=== PATIENT | female | born 1960 | race African-American/Black ===

== ENCOUNTER 2018-05-14 05:40 | Inpatient (IN) | payer BC ==
[~2018-05-14] VITALS: Ht 165.1 cm; Wt 71.0 kg
[2018-05-14] MEDS ORDERED: LABETALOL HCL 5 MG/ML ML 20ML VIAL IV ONE ×2 (05:56→06:15)
[2018-05-14 06:33] LABS: Basophils # (auto) 0 uL; Basophils % (auto) 0.5 % (0.0-2.0); Eosinophils # (auto) 0.1 uL; Eosinophils % (auto) 1.3 % (0.0-7.0); Lymphocytes # (auto) 1.5 uL; Mean Corpuscular Hemoglobin 34.7 pg (28.0-32.0); Monocytes # (auto) 0.5 uL; Neutrophils # (auto) 3.7 uL
[2018-05-14 06:35] LABS: Hematocrit 44.5 % (36.0-46.0); Hemoglobin 15.1 g/dL (12.2-16.2); Lymphocytes % (auto) 26.3 % (10.0-50.0); Mean Corpuscular Volume 102.1 fL (80.0-100.0); Monocytes % (auto) 8.4 % (0.0-12.0); Neutrophils % (auto) 63.5 % (37.0-80.0); Platelet Count (auto) 224 10^3/uL (140-450); Red Blood Cells 4.36 10^6/uL (4.0-5.20); Red Cell Distribution Width 13.1 % (11.8-14.3); White Blood Cell 5.8 10^3/uL (4.4-10.8)
[2018-05-14 06:50] LABS: Albumin 3.7 g/dL (3.4-5.0); Anion Gap 9 (5-15); BUN/Creatinine Ratio 16.9; Blood Alcohol < 3.0 mg/dL (0-5); Blood Urea Nitrogen 10 mg/dL (7-18); Calcium 8.5 mg/dL (8.5-10.1); Carbon Dioxide 26 mmol/L (21-32); Chloride 110 mmol/L (98-107); GFR African American 135 mL/min; GFR Non-African American 111 mL/min; Glucose 89 mg/dL (74-106); Magnesium 2.1 mg/dL (1.6-2.6); Potassium 3.2 mmol/L (3.5-5.1); Sodium 145 mmol/L (136-145)
[2018-05-14 06:52] LABS: INR 0.93 (0.9-1.15)
[2018-05-14 06:56] LABS: Alanine Aminotransferase 17 U/L (13-56); Alkaline Phosphatase 67 U/L (45-117); Aspartate Aminotransferase 14 U/L (15-37); Bilirubin, Total 1.1 mg/dL (0.2-1.0); Total Protein 7.4 g/dL (6.4-8.2)
[2018-05-14] MEDS ORDERED: LORazepam 2MG/ML-1ML VIAL IV PRN (08:45)
[2018-05-14] MEDS ORDERED: DOCUSATE SOD 100 MG CAP PO PRN (09:15)
[2018-05-14] MEDS ORDERED: ACETAMINOPHEN 325 MG TAB PO PRN (09:15)
[2018-05-14] MEDS ORDERED: cloNIDine HCL 0.1 MG TAB PO PRN (09:15)
[2018-05-14] MEDS ORDERED: HYDROcodone-ACET 5/325MG TAB PO PRN (09:15)
[2018-05-14 09:29] LABS: Folate (Folic Acid) 19.87 ng/mL (5.38-24)
[2018-05-14] MEDS: MULTIPLE VITAMIN TAB PO SCH (10:42)
[2018-05-14] MEDS: FAMOTIDINE 20 MG TAB PO SCH ×2 (10:43→21:32)
[2018-05-14] MEDS: ENOXAPARIN SOD 40 MG/0.4 ML SYRINGE SC SCH (10:44)
[2018-05-14] MEDS: LISINOPRIL 10 MG TAB PO SCH (10:44)
[2018-05-14 13:45] LABS: Urine Bacteria NONE SEEN /hpf (None Seen); Urine Blood Negative /uL (Negative); Urine Specific Gravity 1.011 (1.001-1.035); Urine WBC 3 /hpf (0 - 5)
[2018-05-14] MEDS ORDERED: GADOPENTETATE DIMEGLUMINE (10MMOL/20 ML) VIAL IV ONE (13:50)
[2018-05-14] MEDS: SODIUM CHLOR 0.9% PF (SALINE LOCK) 10ML VIAL/SYR IV SCH ×2 (14:23→21:32)
[2018-05-14 18:05] VITALS: BP 166/105
[2018-05-14] MEDS: ONDANSETRON HCL 4 MG/2 ML VIAL IV PRN (18:22)
[2018-05-14] MEDS ORDERED: ENALAPRILAT 1.25 MG/ML-1ML VIAL IV PRN (18:30)
[2018-05-14 22:00] VITALS: BP 105/69
[2018-05-14] MEDS ORDERED: POTASSIUM CHL 20 Meq TABLET PO ONE (22:00)
[2018-05-15] MEDS: ONDANSETRON HCL 4 MG/2 ML VIAL IV PRN ×3 (00:11→19:35)
[2018-05-15] MEDS ORDERED: TEMAZEPAM 15 MG CAP PO ONE ×2 (01:30→20:45)
[2018-05-15 05:00] VITALS: BP 123/89
[2018-05-15] MEDS: SODIUM CHLOR 0.9% PF (SALINE LOCK) 10ML VIAL/SYR IV SCH ×3 (05:40→21:35)
[2018-05-15 06:30] LABS: Basophils # (auto) 0 uL; Eosinophils # (auto) 0.1 uL; Monocytes # (auto) 0.4 uL; White Blood Cell 4.8 10^3/uL (4.4-10.8)
[2018-05-15 06:32] LABS: Basophils % (auto) 0.6 % (0.0-2.0); Eosinophils % (auto) 1.4 % (0.0-7.0); Hematocrit 42.5 % (36.0-46.0); Hemoglobin 14.6 g/dL (12.2-16.2); Lymphocytes # (auto) 1.7 uL; Lymphocytes % (auto) 34.4 % (10.0-50.0); Mean Corpuscular Hemoglobin 34.9 pg (28.0-32.0); Mean Corpuscular Hgb Conc. 34.3 g/dL (32.0-36.0); Mean Corpuscular Volume 101.6 fL (80.0-100.0); Monocytes % (auto) 8.3 % (0.0-12.0); Neutrophils # (auto) 2.7 uL; Neutrophils % (auto) 55.3 % (37.0-80.0); Nucleated Red Blood Cells % 0.1 %; Platelet Count (auto) 212 10^3/uL (140-450); Red Blood Cells 4.19 10^6/uL (4.0-5.20); Red Cell Distribution Width 13.4 % (11.8-14.3)
[2018-05-15 06:46] LABS: Albumin 3.6 g/dL (3.4-5.0); BUN/Creatinine Ratio 14.1; Calcium 8.7 mg/dL (8.5-10.1); Potassium 3.9 mmol/L (3.5-5.1); Total Protein 7.1 g/dL (6.4-8.2)
[2018-05-15 08:42] VITALS: BP 122/77
[2018-05-15] MEDS: MULTIPLE VITAMIN TAB PO SCH (11:06)
[2018-05-15] MEDS: FAMOTIDINE 20 MG TAB PO SCH ×2 (11:07→21:35)
[2018-05-15] MEDS: LISINOPRIL 10 MG TAB PO SCH (11:07)
[2018-05-15] MEDS: ENOXAPARIN SOD 40 MG/0.4 ML SYRINGE SC SCH (11:08)
[2018-05-15 11:45] VITALS: BP 128/90
[2018-05-15 16:32] VITALS: BP 135/82
[2018-05-15 18:11] LABS: % Iron Saturation 15.5 % (15-50)
[2018-05-15] MEDS ORDERED: ALPR0.25 PO (19:16)
[2018-05-15] MEDS ORDERED: NAPR220C PO (19:17)
[2018-05-15 20:08] LABS: Protein, CSF 81.5 mg/dL (15-45)
[2018-05-15 21:33] LABS: CSF White Blood Cells 0 CUMM (0-5)
[2018-05-15 22:00] VITALS: BP 125/88
[2018-05-16 05:00] VITALS: BP 137/86
[2018-05-16] MEDS: SODIUM CHLOR 0.9% PF (SALINE LOCK) 10ML VIAL/SYR IV SCH ×3 (06:01→21:22)
[2018-05-16 09:00] VITALS: BP 142/98
[2018-05-16] MEDS ORDERED: LORazepam 2MG/ML-1ML VIAL IV PRN (09:15)
[2018-05-16] MEDS: FAMOTIDINE 20 MG TAB PO SCH ×2 (09:57→21:21)
[2018-05-16] MEDS: LISINOPRIL 10 MG TAB PO SCH (09:58)
[2018-05-16] MEDS: MULTIPLE VITAMIN TAB PO SCH (09:58)
[2018-05-16] MEDS: ENOXAPARIN SOD 40 MG/0.4 ML SYRINGE SC SCH (09:59)
[2018-05-16 13:00] VITALS: BP 151/87
[2018-05-16 17:00] VITALS: BP 139/93
[2018-05-16 22:00] VITALS: BP 150/94
[2018-05-16] MEDS ORDERED: TEMAZEPAM 15 MG CAP PO ONE (22:45)
[2018-05-17 04:05] LABS: Serum Albumin 4.3 g/dL (3.5-5.5)
[2018-05-17 05:00] VITALS: BP 138/97
[2018-05-17] MEDS: SODIUM CHLOR 0.9% PF (SALINE LOCK) 10ML VIAL/SYR IV SCH ×2 (06:24→14:21)
[2018-05-17 08:00] VITALS: BP 134/93
[2018-05-17 08:10] LABS: Immunoglobulin G, Serum 905 mg/dL (700-1600)
[2018-05-17] MEDS: FERROUS SULFATE 325 MG TAB PO SCH ×2 (08:28→18:00)
[2018-05-17] MEDS: FAMOTIDINE 20 MG TAB PO SCH (10:26)
[2018-05-17] MEDS: MULTIPLE VITAMIN TAB PO SCH (10:27)
[2018-05-17] MEDS: LISINOPRIL 10 MG TAB PO SCH (10:27)
[2018-05-17] MEDS: ENOXAPARIN SOD 40 MG/0.4 ML SYRINGE SC SCH (10:27)
[2018-05-17 11:41] VITALS: BP 134/93
[2018-05-17 12:51] VITALS: BP 132/94
[2018-05-17 16:58] VITALS: BP 137/85
[2018-05-21 15:09] LABS: Albumin, CSF 49 mg/dL (11-48); CSF IgG Index 0.7 (0.0-0.7); CSF/Serum Alb. Index 11 (0-8); IgG/Alb Ratio, CSF 0.14 (0.00-0.25)
== END 2018-05-17 19:25 | disposition home or self-care (01) | DRG 64 ==
LOC: ER 05:44 → OVERFLOW 05:45 → WEST WING 17:16 → TELE-WESTW 18:46
PROVIDERS: ADMIT Internal Medicine; ATTEND Family Medicine
PROC: 009U3ZX Drainage of Spinal Canal, Percutaneous Approach, Diagnostic (ICD-10-PCS; principal; 2018-05-15)
DX: I63.9 Cerebral infarction, unspecified (principal); G93.40 Encephalopathy, unspecified; G37.9 Demyelinating disease of central nervous system, unspecified; G81.91 Hemiplegia, unspecified affecting right dominant side; G60.0 Hereditary motor and sensory neuropathy; E87.5 Hyperkalemia; E87.6 Hypokalemia; F40.240 Claustrophobia; I10 Essential (primary) hypertension; D75.89 Other specified diseases of blood and blood-forming organs; R26.9 Unspecified abnormalities of gait and mobility; I25.10 Atherosclerotic heart disease of native coronary artery without angina pectoris; M48.02 Spinal stenosis, cervical region; M77.9 Enthesopathy, unspecified; Z82.0 Family history of epilepsy and other diseases of the nervous system; Z88.5 Allergy status to narcotic agent; Z80.8 Family history of malignant neoplasm of other organs or systems; Z71.3 Dietary counseling and surveillance
CPT/HCPCS: 36415; 70450; 70553; 72141; 72146; 76700; 80053; 80320; 81001; 82042; 82164; 82607; 82746; 82784; 82945; 83540; 83550; 83605; 83735; 83880; 84157; 84443; 84484; 85025; 85379; 85610; 85652; 85730; 86038; 86141; 86160; 86225; 87070; 89051; 92610; 93005; 93306; 93886; 95819; 96374; 96375; 99291; J2405